=== PATIENT | male | born 1990 | race Caucasian/White ===

== ENCOUNTER 2016-09-08 09:35 | Emergency (ER) | payer OTHER ==
[~2016-09-08] VITALS: Ht 182.9 cm; Wt 118.3 kg
[2016-09-08 09:42] VITALS: TEMP 37; Ht 182.9 cm; Wt 118.3 kg
[2016-09-08] MEDS: HYDROmorphone INJ 1 MG/ML SYR IV PRN ×5 (09:51→11:01)
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
[2016-09-08 10:20] LABS: BASO % 0.3 %; BASO ABS # 0.03 K/uL (0-0.2); COMPLETE YES; EOS % 2.6 %; HEMATOCRIT 46.7 % (42-52); IG% 0.8 %; LYMPH % 20.2 %; LYMPH ABS # 2.12 K/uL (1.2-3.4); MEAN CELL VOLUME 88.4 fL (80-100); MEAN CORPUSCULAR HEMOGLOBIN 31.8 pg (25-34); MEAN PLATELET VOLUME 9.8 fL (7.4-10.4); MONO % 6.5 %; NEUT % 69.6 %; PLATELET COUNT 263 K/uL (130-400); RED BLOOD COUNT 5.28 M/uL (4.7-6.1); WHITE BLOOD COUNT 10.51 K/uL (4.8-10.8)
[2016-09-08 10:30] LABS: INR 0.9 (0.9-1.1)
[2016-09-08] MEDS ORDERED: BUSP-8 PO (10:31)
[2016-09-08] MEDS ORDERED: SODIUM CHLORIDE 0.9% 1000ML 1,000 ML IV STA (10:32)
[2016-09-08 10:37] LABS: BUN/CREATININE RATIO 10.3 (10-20); CALCIUM 8.3 mg/dl (8.5-10.1)
[2016-09-08 10:39] LABS: ALB/GLOB RATIO 1.1 (0.9-2)
[2016-09-08] MEDS ORDERED: DIPHTHERIA/TETANUS/PERTUSSIS 0.5 ML SYR/VIAL IM. ONE (10:45)
[2016-09-08 10:50] VITALS: PULSE 60; O2SAT 92
[2016-09-08 11:01] VITALS: BP 185/112
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
== END 2016-09-08 11:15 | disposition short-term general hospital (02) ==
LOC: EDBD 09:35 → C.ED 09:36
DX: T20.05XA Burn of unspecified degree of scalp [any part], initial encounter (principal); T22.30XA Burn of third degree of shoulder and upper limb, except wrist and hand, unspecified site, initial encounter; T22.211A Burn of second degree of right forearm, initial encounter; T23.201A Burn of second degree of right hand, unspecified site, initial encounter; V87.8XXA Person injured in other specified noncollision transport accidents involving motor vehicle (traffic), initial encounter; Y99.0 Civilian activity done for income or pay; F41.9 Anxiety disorder, unspecified; F17.200 Nicotine dependence, unspecified, uncomplicated; Z23 Encounter for immunization